=== PATIENT | male | born 1955 | race Caucasian/White ===

== ENCOUNTER 2018-12-21 17:25 | Inpatient (IN) | payer BC, SELFPAY ==
[2018-12-21] VITALS (7 sets, daily range): BP systolic 128–136; BP diastolic 75–95; PULSE 102–118; RESP 16–18; TEMP 36.7–37.2; O2SAT 94–96; BMI 23.3; BMI 23.2
--- NOTE | 2018-12-21 17:46 | CT_ITS ---
STUDY: CTA CHEST REASON FOR EXAM: Male, 63 years old. Left lower extremity DVT RADIATION DOSAGE (If Supplied By Facility): CTDIvol = ( 11.12 ) mGy, DLP = ( 470.24 ) mGycm TECHNIQUE: The examination was performed with the intravenous administration of Isovue 370 100ML IV. Post-processing of the angiographic images was performed, with multiplanar reformation and 3D reconstruction. Individualized dose optimization techniques were used for this CT. COMPARISON: None. FINDINGS: Pulmonary emboli noted bilaterally within the second and third order branch vessels. On the right, within the right upper lobe, right middle lobe and right lower lobe and on the left, within the left lower lobe. No evidence of saddle component Normal thoracic aorta and visualized great vessels. There is no demonstrated aortic dissection. No evidence of right heart strain. Mild cardiomegaly. Normal mediastinum. Normal hilar regions. Normal visualized trachea and bronchi. The lungs are well expanded. Normal pulmonary parenchyma. Normal pleura. Normal chest wall structures. Normal osseous structures. Normal visualized upper abdomen. CT/CTA Chest W/WO Contrast IMPRESSION: Bilateral pulmonary emboli as detailed above. No evidence of right heart strain. No saddle component. Lungs are clear. N.B. : The above information has been verbally conveyed by Maxim Waggoner DO to Dr. Devin Rowland MD, on 12/21/2018 19:53:59 (ET). Electronically Signed: Maxim Waggoner DO at 19:55 EDT Tel , Service support ,
--- NOTE | 2018-12-21 17:49 | ED.DCSUM_ITS ---
- ER Visit Summary Date of Service: 12/21/18 Chief Complaint: Lower extremity edema History of Present Illness: The patient is a 63 M with left lower extremity edema that started earlier today. He had a venous ultrasound which showed a DVT. He denies any chest pain shortness of breath. He did does not feel lightheaded when he stands up. He has no recent fever or chills. 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 Physical Examination: Patient appears comfortable, he is speaking in full sentences with no obvious distress Slightly dry mucous membranes, no obvious facial deformity No C-spine tenderness supple neck. Regular rhythm, tachycardic, without any obvious murmurs Clear lungs bilaterally speaking in full sentences without any obvious respiratory distress Abdomen soft and nontender no guarding or rebound Moves all extremities without any difficulty or pain. There is left lower extremity edema in the ankle up to the knee. Skin does not show any obvious rashes or lesions, no trauma. Alert oriented ?3 with no gross focal deficit Emergency Department Course and Treatment: Patient continued to be tachycardic in the ED because of this a CT angiogram was done. This showed multiple PEs. Because he is not hemodynamically stable due to his tachycardia he will need admission. He will receive anticoagulation in the ED. I discussed the patient with his physician at [facility], Dr. Irene. Disposition: Admit in guarded condition Impression: Pulmonary embolism DVT This note was generated with [employer] dictation software. It may contain incorrect words, spelling, and punctuation that were not noted in review of the chart prior to signing ED Disposition - Plan for ED Patient: Referrals: Abdirizak Rubio DO [Primary Care Provider] -
[2018-12-21 18:16] LABS: Absolute Lymphocyte Count 0.35 X10^3/ul (0.83-4.51); Absolute Neutrophil Count 8.6 X10^3/uL (2.0-7.7); Basophil# 0.01 X10^3/uL; Basophil% 0.1 % (0-1); Eosinophil# 0.03 X10^3/uL; Eosinophils% 0.3 % (0-5); Hematocrit 35.7 % (40-54); Hemoglobin 11.6 g/dl (13.0-16.5); Lymphocyte # 0.35 X10^3/ul (4.0); Lymphocyte % 3.8 % (19-41); Mean Corp Hgb Conc 32.5 g/gl (32-36); Mean Corpuscular Hgb 30.2 pg (27.0-32.0); Monocyte# 0.27 X10^3/uL; Monocyte% 2.9 % (0-10); Neutrophil # 8.55 X10^3/uL (2.7-7.7); Neutrophil % 92.1 % (47-70); POSITIVE COUNT NO; POSITIVE DIFFERENTIAL YES; POSITIVE MORPHOLOGY NO; Platelet Count 170 K/mm3 (150-450); RBC Distribution Width CV 16.3 % (11.6-14.6); RBC Distribution Width SD 53.9 fl (35.1-43.9); Red Blood Count 3.84 M/mm3 (4.6-6.2); White Blood Count 9.3 K/mm3 (4.4-11.0)
[2018-12-21 18:17] LABS: Differential Indicated SCAN CRITERIA MET
[2018-12-21 18:27] LABS: AST(SGOT) 13 U/L (15-37); Alanine Aminotransfer ALT/SGPT 20 U/L (16-61); Albumin, Serum 3.2 g/dL (3.2-5.0); Alkaline Phosphatase 121 U/L (45-117); Anion Gap 6 (5-15); BUN 13 mg/dL (7-18); BUN/Creat Ratio 16.8 RATIO (10-20); Chloride 107 mmol/L (98-107); Creatinine, Serum 0.77 mg/dL (0.70-1.30); EST Glomerular Filtration Rate 108 mL/min (>60); Est Glom Filt Rate - Afr Amer 130 mL/min (>60); Estimated Creatinine Clearance 130.14 ml/min; Globulin 3.3 g/dL (2.2-4.2); Glucose 95 mg/dL (74-106); Protein, Total 6.5 g/dL (6.4-8.2); Sodium Level 138 mmol/L (136-145)
[2018-12-21 18:41] LABS: Differential Comment SCANNED
--- NOTE | 2018-12-21 19:08 | EKG12_ITS ---
Test Reason : EDEMA Blood Pressure : / mmHG Vent. Rate : 103 BPM Atrial Rate : 103 BPM P-R Int : 128 ms QRS Dur : 100 ms QT Int : 352 ms P-R-T Axes : 059 019 036 degrees QTc Int : 461 ms Sinus tachycardia Otherwise normal ECG Confirmed by MANE PARISI ([id number]), mapping editor ZAC WILCOX ([id number]) on 12/25/2018 4:49:24 PM Referred By: CHERI Confirmed By:MANE PARISI
[2018-12-21] MEDS: Enoxaparin 100 MG/ML Syringe 90 MG SC (19:19)
[2018-12-21] MEDS: 0.9% Normal Saline 1,000 ML 1000 ML IV (19:19)
--- NOTE | 2018-12-21 19:58 | HP.PCM_ITS ---
Problem List (1) DVT, lower extremity Status: Acute Qualifiers: Affected thrombotic vein of extremity: unspecified vein of extremity Chronicity: acute Laterality: left Qualified Code(s): I82.402 - Acute embolism and thrombosis of unspecified deep veins of left lower extremity (2) Pulmonary emboli Status: Acute Qualifiers: Pulmonary embolism type: other Chronicity: acute Acute cor pulmonale presence: without acute cor pulmonale Qualified Code(s): I26.99 - Other p ulmonary embolism without acute cor pulmonale (3) Plasmacytic leukemia Status: Chronic Qualifiers: Leukemia Active/Remission status: without remission Qualified Code(s): C90.10 - Plasma cell leukemia not having achieved remission (4) Meniere's disease Status: Chronic Qualifiers: Laterality: right Qualified Code(s): H81.01 - Meniere's disease, right ear History of Present Illness Date of Admission: 12/21/18 Chief Complaint: Recent LLE DVT, referred to ED The patient is a 63 y/o M w/ PMHx: Leukemia (Plasmacytoma) currently undergoing chemotherapy following Dr. Irene [facility] w/ chemotherapy today with onset LLE edema, mild discomfort primarily in the L knee region acute on chronic starting on day of ED presentation w/ UC evaluation for DVT, + extensive DVT from calf to femoral with referral to the ED secondary to the extensive nature of the clot. He denies any recent chest discomfort, dyspnea. Work-up in the ED included T 98.1, heart rate 118, BP 120/75, respiratory rate 18, 96% on room air, CBC with WBC 9.3, hemoglobin 11.6, platelet 170 with left shift, CMP not market appearing aside alk phos 121, troponin less than 0.015, EKG w/ sinus tachycardia, CTPA w/ BL diffuse pulmonary emboli. In the ED patient administered NS, therapeutic lovenox. Past Medical History Past Medical History (Chronic Problems): Chronic Problems Plasmacytic leukemia (Chronic) Meniere's disease (Chronic) Allergies No Known Allergies Allergy (Verified 12/21/18 17:26) Home Medications: Ambulatory Orders Medication Instructions Recorded Acyclovir 400 mg PO BID 12/21/18 Surgical History: - - Tonsillectomy, bilateral inguinal hernia repair, left leg prophylactic hardware placement, right ear decompression, appendectomy. Psychiatric History: No pertinent psych hx Lives: Spouse/ Significant Other Smoking Status: Never smoker Tobacco Use: Non-smoker Alcohol: None Drugs: None - *Family History Maternal History Items: Cancer - Breast CA. Paternal History Items: Cancer - Colon CA. Review of Systems Constitutional: Reports: Malaise, Weakness, Fatigue. Denies: Chills, Fever, Weight Change HEENT: Denies: Head Aches, Sinus Congestion, Sinus Drainage Cardiovascular: Reports: Edema. Denies: Chest Pain, Palpitations Respiratory: Denies: Cough, Shortness of breath at rest, Sputum production Gastrointestinal: Denies: Abdominal Pain, Nausea, Vomiting Genitourinary: Denies: Dysuria Musculoskeletal: Reports: Joint Pain, Leg Pain. Denies: Joint Tenderness Skin: Denies: Rash, Wounds Neurological: Denies: Numbness, Tingling, Focal weakness Psychiatric: Denies: Anxiety, Depression, Homicidal Ideations, Suicidal Ideations Hematologic/ Lymphatic: Reports: Easy Bruising, Easy Bleeding VTE Information - Inpt Only VTE Present on Admission: No VTE Mechan Device Prophylaxis: None VTE Pharm Prophylaxis ordered?: Yes Patient Problems: Active and Suspected Problems DVT, lower extremity (Acute) Pulmonary emboli (Acute) Subjective: Seated upright in the ED bed, fatigued appearance, NAD. Objective: Physical Examination: General: awake, alert, oriented x 3 and cooperative, seated upright in the ED b ed, fatigued appearance, no acute distress. Skin: normal color, turgor, no icterus, cyanosis. HEENT: AT/NC, EOMI, PERRLA, mildly dry MM, no carotid bruits or JVD noted. Lungs: Diminished breath sounds bilateral bases, moderate effort, no rales, ronchi or wheezing. Heart: Tachycardic with regular rhythm; no gallop, rub audible. Abdomen: soft, NTTP, ND, normal BS, no HSM. Extremities: no cyanosis, clubbing, lower extremity pedal to upper thigh edema, not markedly tender to palpation, noted pain is primarily at the knee. Neurological: patient awake, alert, oriented x 3; cognitive function intact; pupils equally reactive to light and accomodation; cranial nerves II-XII grossly normal, moving all 4 extremities, no focal deficits, strength moderately globally decreased secondary to acute presentation. Psychiatric: affect appears mildly fatigued, no acute evidence of depressive or anxiety feelings. - Physical Exam Vital Signs Temp Pulse Resp BP Pulse Ox 98.1 F 102 H 16 136/95 H 96 12/21/18 17:26 12/21/18 19:23 12/21/18 19:23 12/21/18 19:23 12/21/18 19:23 Oxygen Delivery Method Room Air Weight: 207 lb Body Mass Index (BMI) 23.3 Laboratory Tests Past 24 Hrs 12/21/18 12/21/18 12/21/18 17:55 17:55 17:55 WBC 9.3 RBC 3.84 L Hgb 11.6 L Hct 35.7 L MCV 93.0 MCH 30.2 MCHC 32.5 RDW 16.3 H RDW Differential 53.9 H Plt Count 170 MPV 9.0 Immature Gran % (Auto) 0.800 Neut % (Auto) 92.1 H Lymph % (Auto) 3.8 L Mchenry % (Auto) 2.9 Eos % (Auto) 0.3 Baso % (Auto) 0.1 Absolute Neuts (auto) 8.6 H Absolute Lymphs (auto) 0.35 L Total Counted Not Reportable Differential Comment SCANNED Sodium 138 Potassium 4.0 Chloride 107 Carbon Dioxide 25.0 Anion Gap 6 BUN 13 Creatinine 0.77 Estim Creat Clear Calc 130.14 Est GFR (MDRD) Af Amer 130 Est GFR (MDRD) Non-Af 108 BUN/Creatinine Ratio 16.8 Glucose 95 Calcium 8.0 L Total Bilirubin 0.20 AST 13 L ALT 20 Alkaline Phosphatase 121 H Troponin I < 0.015 Pending Total Protein 6.5 Albumin 3.2 Globulin 3.3 Albumin/Globulin Ratio 1.0 Assessment/Plan All Active Problems DVT, lower extremity (Acute) Pulmonary emboli (Acute) The patient is a 63 y/o M w/ PMHx: Leukemia (Plasmacytoma) currently undergoing chemotherapy following Dr. Irene per [facility] w/ chemotherapy today with onset LLE edema, mild discomfort primarily in the L knee region acute on chronic starting on day of ED presentation w/ UC evaluation for DVT, + extensive DVT from calf to femoral. (1) Diffuse Extensive LLE DVT w/ Resulting Diffuse BL Pulmonary Emboli: Work-up in the ED included T 98.1, heart rate 118, BP 120/75, respiratory rate 18, 96% on room air, CBC with WBC 9.3, hemoglobin 11.6, platelet 170 with left shift, CMP not market appearing aside alk phos 121, troponin less than 0.015, EKG w/ sinus tachycardia, CTPA w/ BL diffuse pulmonary emboli. Will admit to PCU, maintain on cardiac telemetry, will obtain ECHO, BNP, trop normal x 1 as noted and no overt strain on imaging. Given acute LLE DVT and pulmonary emboli in the setting of known cancer, per recommendations based on CLOT trial and superiority of injectable anticoagulation compared to PO anticoagulation with patients with active malignancy and thrombosis will plan to assess for initiation and continuation of lovenox 1 mg/kg q12. If not an option (i.e cost), may consider usage per CLOT trial of new oral anticoagulants or coumadin regimen. (2) Plasmacytic Leukemia: Patient diagnosed 10/2017, currently undergoing chemotherapy, following Dr. Irene per [facility] w/ chemotherapy on day of ED presentation. Mag and phos pending. Continue home acyclovir prophylactic regimen. (3) DVT prophylaxis: As noted acute DVT, PE setting, maintain on therapeutic lovenox as per #1. Code Visit Inpatient E&M: 78331 Init Hosp L3
--- NOTE | 2018-12-21 21:15 | ECHOCS_ITS ---
Reason For Study: Emboli Procedure This was a 2D Doppler, Color Flow transthoracic echocardiogram. Unable to perform Strain analysis due to needed use of Definity for Apical images. Exam performed portable in patient room. Left Ventricle Normal size and thickness. The estimated ejection fraction is 65 %. Stage 1 diastolic dysfunction. No regional wall motion abnormalities noted. Right Ventricle Normal size and thickness. Normal systolic function. Atria The left atrium is mildly enlarged. Normal right atrium. Normal atrial septum. Mitral Valve The mitral valve is structurally normal. No prolapse or stenosis seen. Trivial mitral valve insufficiency. Tricuspid Valve Normal tricuspid valve. Trivial tricuspid valve insufficiency. Right ventricular systolic pressure estimated to be 28 mmHg. Aortic Valve Normal aortic valve. Trisinus/trileaflet aortic valve. Pulmonic Valve Normal pulmonic valve. Great Vessels Normal aortic root. Normal arch. Normal inferior vena cava. Inferior vena cava collapse with sniff. Pericardium/Pleural No pericardial effusion. MMode/2D Measurements & Calculations LVIDd: 5.1 cm IVSd: 1.4 cm Ao root diam: 3.9 cm LVIDs: 3.1 cm LVPWd: 1.4 cm LA dimension: 3.6 cm FS: 38.3 % LAV(MOD-sp4): 67.5 ml LA A4 area: 21.9 cm2 RA A4 area: 17.6 cm2 Time Measurements MV dec time: 0.22 sec Doppler Measurements & Calculations MV E max desmond: 60.4 cm/sec Lat Peak E' Desmond: 6.5 cm/sec Med Peak E' Desmond: 9.2 cm/sec MV A max desmond: 81.9 cm/sec E/E' lat: 9.3 E/E' med: 6.5 MV E/A: 0.74 MV V2 max: 89.3 cm/sec MV P1/2t max desmond: 65.4 cm/sec Ao V2 max: 122.0 cm/sec MV max P.2 mmHg MV P1/2t: 79.1 msec Ao max P.0 mmHg MV V2 mean: 49.4 cm/sec MV dec slope: 242.0 cm/sec2 Ao V2 mean: 84.2 cm/sec MV mean P.1 mmHg MVA(P1/2t): 2.8 cm2 Ao mean P.2 mmHg MV V2 VTI: 17.2 cm Ao V2 VTI: 24.9 cm LV V1 max: 86.8 cm/sec PA V2 max: 84.7 cm/sec TR max desmond: 239.2 cm/sec LV V1 max P.0 mmHg TR max P.9 mmHg LV V1 mean P.4 mmHg LV V1 mean: 54.6 cm/sec LV V1 VTI: 18.6 cm Interpretation Summary The estimated ejection fraction is 65 %. Stage 1 diastolic dysfunction. The left atrium is mildly enlarged. Trivial mitral valve insufficiency. Trivial tricuspid valve insufficiency. Right ventricular systolic pressure estimated to be 28 mmHg. The study was technically difficult. Compared to prior study, changes are noted. Contrast injection was performed. Ordering Physician: Jahaira Jackson Referring Physician: Abdirizak Rubio M.D. Performed By: Carlos Cameron RCS
[2018-12-21] MEDS: 0.9% Normal Saline 1,000 ML 100 ML IV (21:30)
[2018-12-21] MEDS: Acyclovir 200 MG Capsule 400 MG PO (21:35)
[2018-12-21 21:43] LABS: Magnesium 2.2 mg/dL (1.6-2.6); Phosphorus 2.9 mg/dL (2.5-4.9)
[2018-12-21] MEDS: 0.9% NaCl Peripheral Flush Adult/Peds IV (22:05)
[2018-12-22] VITALS (8 sets, daily range): BP systolic 126–134; BP diastolic 76–87; PULSE 91–103; RESP 16; TEMP 36.4–37.2; O2SAT 93–95
[2018-12-22 07:36] LABS: Anion Gap 8 (5-15); BUN 13 mg/dL (7-18); BUN/Creat Ratio 16.9 RATIO (10-20); Calcium,Total 8.2 mg/dL (8.5-10.1); Chloride 107 mmol/L (98-107); Creatinine, Serum 0.77 mg/dL (0.70-1.30); EST Glomerular Filtration Rate 108 mL/min (>60); Est Glom Filt Rate - Afr Amer 131 mL/min (>60); Estimated Creatinine Clearance 130.14 ml/min; Glucose 137 mg/dL (74-106); Sodium Level 141 mmol/L (136-145)
[2018-12-22] MEDS: Acyclovir 200 MG Capsule 400 MG PO (09:29)
[2018-12-22] MEDS: Enoxaparin 100 MG/ML Syringe 90 MG SC ×2 (09:30→17:14)
--- NOTE | 2018-12-22 15:57 | CASEMGMT ---
RN NOLAN SILVICULTURIST CM to room to meet with patient for initial transition planning/care coordination assessment. JUAN FRANCISCO introduced self and role at [facility]. Pt voices understanding and consents to assessment at this time. Pt resting in bed in no distress at this time. Pt is A/O at this time and answers all questions appropriately. Care providers, pharmacy, and demographics verified/updated at this time. PCP: Joanne Specialists: Dr Irene-oncologist @ [facility] Preferred [facility]acy: [facility] Insurance: [employer] Prescription Benefit: Yes/[employer] Living Will/HPOA: Has both LW and HCPOA who is his . Living Arrangements: Lives @ home in a ranch home with his . 4 steps to enter. is independent with ADL's. Transportation: . DME: Uses a cane. Pt states no need for further DME at this time. HHC/SNF: Has never been to a SNF. Did have HHC after after surgery but does not remember the name of the agency. No needs for HHC identified at this time. Pt wishes to return home and has no concerns with going home at time of discharge. [facility] is currently receiving Out-pt PT @ [facility] in [place] and plans to continue doing therapy with them. CM to follow for any discharge planning/needs. Pt voices no further concerns/needs at this time. Advised pt to ask for CM if any further questions/concerns/needs arise. Voices understanding. PLAN: Home with continued Out-pt PT, spousal support, and discharge plans in place. Donna MOLINA RN, CM
--- NOTE | 2018-12-22 17:55 | DCINST_ITS ---
- Discharge Diagnoses Current Active Problems: Current Active and Chronic Problems Multiple myeloma (Chronic) DVT, lower extremity (Acute) Pulmonary emboli (Acute) Meniere's disease (Chronic) You will use the following diet at home:: No restrictions Your food should be the consistency of: Regular Your liquids should be the consistency of: Regular/Thin Discharge Activity: Return to Normal Activity Weight Bearing Status: Full weight bearing Allergies/Adverse Reactions: Allergies No Known Allergies Allergy (Verified 12/21/18 17:26) Medications to take at Discharge Acyclovir 400 mg PO BID 12/21/18 Acetaminophen [Tylenol Tablet] 650 mg PO Q6H PRN PRN tablet 12/22/18 Enoxaparin Sodium [Lovenox] 140 mg SQ DAILY #30 ml 12/22/18 The following prescriptions were given: Enoxaparin Sodium [Lovenox] 140 mg SQ DAILY #30 ml Primary Care Physician: Abdirizak Rubio DO [Primary Care Provider] - Test Results: Test results from this visit will be discussed in further detail at your follow- up appointment, if applicable. Please Follow Up With: your oncologist as directed
--- NOTE | 2018-12-24 16:46 | PCM.DC.SUM ---
Discharge Date and Diagnosis Date of Admission: 12/21/18 Date of Discharge: 12/22/18 - Primary Discharge Diagnosis #1 bilateral pulmonary emboli #2 multiple myeloma #3 VTE lower extremity - Secondary Discharge Diagnosis Chronic Problems Multiple myeloma (Chronic) Meniere's disease (Chronic) Hospital Course and Treatment Operations: None Procedures: 2-D Echocardiogram Summary of Care Provided: The patient is a 63 year old M who was seen in the emergency room at [facility] with chief complaint of lower extremity edema. Patient had an outpatient venous ultrasound which showed a DVT, patient had no complaints of any chest pain or shortness of breath. CTA of the chest was performed in the emergency room, the CTA showed multiple PEs, he was felt to need admission due to his tachycardia. Patient was admitted to PCU, placed on Lovenox, patient had an echocardiogram performed which was unremarkable. Patient was felt to be stable for discharge home, he required no oxygen and his vital signs were stable. It was felt that the best medication for the patient to take as an outpatient for his problem was Lovenox due to the fact that he was getting chemotherapy for multiple myeloma and this would cause thrombocytopenia and it was felt that it was easier to stop Lovenox if this occurred rather than stop Eliquis or Xarelto. On 12/22/18, patient was seen and examined: On examination he appeared in good health and spirits. Vital signs as documented. Skin warm and dry and without overt rashes. Neck without JVD. Lungs clear. Heart exam notable for regular rhythm, normal sounds and absence of murmurs, rubs or gallops. Abdomen unremarkable and without evidence of organomegaly, masses, or abdominal aortic enlargement. Extremities nonedematous. Neuro: Cranial nerves II through XII are grossly intact, no focal motor deficits were noted, sensation to light touch and pinprick intact. Psych: Patient is alert and oriented x3, he does not appear anxious or depressed On 12/22/18, patient was seen and examined and discharged home in stable condition - Physical Exam Vital Signs Temp Pulse Resp BP Pulse Ox 98.9 F 97 16 134/79 H 94 12/22/18 14:26 12/22/18 15:00 12/22/18 14:26 12/22/18 14:26 12/22/18 14:26 Oxygen Delivery Method Room Air Weight: 93.7 kg Body Mass Index (BMI) 23.2 Intake and Output for Last 24 Hours 12/22/18 12/23/18 12/24/18 23:59 23:59 23:59 Intake Total 833 / 833 Balance 833 / 833 Discharge Activity: Return to Normal Activity Weight Bearing Status: Full weight bearing Home Medications: Medications to take at Discharge Acyclovir 400 mg PO BID 12/21/18 Acetaminophen [Tylenol Tablet] 650 mg PO Q6H PRN PRN tablet 12/22/18 Enoxaparin Sodium [Lovenox] 140 mg SQ DAILY #30 ml 12/22/18 Following Prescrptions Were Given to Patient: Enoxaparin Sodium [Lovenox] 140 mg SQ DAILY #30 ml Primary Care Physician: Abdirizak Rubio DO [Primary Care Provider] - Please Follow Up With: your oncologist as directed Disposition: Home Minutes spent on discharge:: 32 Patient Condition:: Stable Medical Necessity - Tobacco Use Smoking Status: Never smoker Tobacco Use: Non-smoker Meaningful Use Info Meaningful Use Diagnoses (Choose all that apply): VTE - VTE Anticoag overlap given w/in hospital stay or rx'd at [place]?: No Pt receive overlap for 5 days?: No Reason overlap not ordered, prescribed, or given for 5 days: Medical Contraindication, Treatment Not Indicated Code Visit Inpatient E&M: 13803 Disch Hosp
--- NOTE | 2018-12-24 16:50 | DS.PCM_ITS ---
Discharge Date and Diagnosis Date of Admission: 12/21/18 Date of Discharge: 12/22/18 - Primary Discharge Diagnosis #1 bilateral pulmonary emboli #2 multiple myeloma #3 VTE lower extremity - Secondary Discharge Diagnosis Chronic Problems Multiple myeloma (Chronic) Meniere's disease (Chronic) Hospital Course and Treatment Operations: None Procedures: 2-D Echocardiogram Summary of Care Provided: The patient is a 63 year old M who was seen in the emergency room at [facility] with chief complaint of lower extremity edema. Patient had an outpatient venous ultrasound which showed a DVT, patient had no complaints of any chest pain or shortness of breath. CTA of the chest was performed in the emergency room, the CTA showed multiple PEs, he was felt to need admission due to his tachycardia. Patient was admitted to PCU, placed on Lovenox, patient had an echocardiogram performed which was unremarkable. Patient was felt to be sta ble for discharge home, he required no oxygen and his vital signs were stable. It was felt that the best medication for the patient to take as an outpatient for his problem was Lovenox due to the fact that he was getting chemotherapy for multiple myeloma and this would cause thrombocytopenia and it was felt that it was easier to stop Lovenox if this occurred rather than stop Eliquis or Xarelto. On 12/22/18, patient was seen and examined: On examination he appeared in good health and spirits. Vital signs as documented. Skin warm and dry and without overt rashes. Neck without JVD. Lungs clear. Heart exam notable for regular rhythm, normal sounds and absence of murmurs, rubs or gallops. Abdomen unremarkable and without evidence of organomegaly, masses, or abdominal aortic enlargement. Extremities nonedematous. Neuro: Cranial nerves II through XII are grossly intact, no focal motor deficits were noted, sensation to light touch and pinprick intact. Psych: Patient is alert and oriented x3, he does not appear anxious or depressed On 12/22/18, patient was seen and examined and discharged home in stable condition - Physical Exam Vital Signs Temp Pulse Resp BP Pulse Ox 98.9 F 97 16 134/79 H 94 12/22/18 14:26 12/22/18 15:00 12/22/18 14:26 12/22/18 14:26 12/22/18 14:26 Oxygen Delivery Method Room Air Weight: 93.7 kg Body Mass Index (BMI) 23.2 Intake and Output for Last 24 Hours 12/22/18 12/23/18 12/24/18 23:59 23:59 23:59 Intake Total 833 / 833 Balance 833 / 833 Discharge Activity: Return to Normal Activity Weight Bearing Status: Full weight bearing Home Medications: Medications to take at Discharge Acyclovir 400 mg PO BID 12/21/18 Acetaminophen [Tylenol Tablet] 650 mg PO Q6H PRN PRN tablet 12/22/18 Enoxaparin Sodium [Lovenox] 140 mg SQ DAILY #30 ml 12/22/18 Following Prescrptions Were Given to Patient: Enoxaparin Sodium [Lovenox] 140 mg SQ DAILY #30 ml Primary Care Physician: Abdirizak Rubio DO [Primary Care Provider] - Please Follow Up With: your oncologist as directed Disposition: Home Minutes spent on discharge:: 32 Patient Condition:: Stable Medical Necessity - Tobacco Use Smoking Status: Never smoker Tobacco Use: Non-smoker Meaningful Use Info Meaningful Use Diagnoses (Choose all that apply): VTE - VTE Anticoag overlap given w/in hospital stay or rx'd at [place]?: No Pt receive overlap for 5 days?: No Reason overlap not ordered, prescribed, or given for 5 days: Medical Contraindication, Treatment Not Indicated Code Visit Inpatient E&M: 93209 Disch Hosp
== END 2018-12-22 18:30 | disposition home or self-care (01) | DRG 299 ==
LOC: ED 18:39 → PCU 20:26
PROVIDERS: Admitting Provider Family Medicine; Emergency Provider Emergency Medicine; Family Provider Family Medicine; PCP Family Medicine; Visit Provider Internal Medicine
DX: I82.402 Acute embolism and thrombosis of unspecified deep veins of left lower extremity (principal); I26.99 Other pulmonary embolism without acute cor pulmonale; C90.00 Multiple myeloma not having achieved remission; C90.10 Plasma cell leukemia not having achieved remission; Z79.899 Other long term (current) drug therapy; H81.09 Meniere's disease, unspecified ear
CPT/HCPCS: 36415; 71275; 80048; 80053; 83735; 84100; 84484; 85025; 93005; 93306; 97802; 99282; J7030; Q9957; Q9967; A4216; C8929

== ENCOUNTER 2019-08-31 10:41 | Emergency (ER) | payer BC, SELFPAY ==
[2018-12-21 21:18] VITALS: BMI 23.2
[2019-08-31 10:43] VITALS: BP 110/76; PULSE 97; RESP 13; TEMP 36.8; O2SAT 98; BMI 19.6
[2019-08-31 11:46] LABS: Absolute Lymphocyte Count 0.42 X10^3/uL (0.83-4.51); Absolute Neutrophil Count 3.4 X10^3/uL (2.0-7.7); Basophil# 0.01 X10^3/uL; Basophil% 0.2 % (0-1); Differential Indicated SCAN CRITERIA MET; Eosinophil# 0.03 X10^3/uL; Eosinophils% 0.6 % (0-5); Hematocrit 33.2 % (40-54); Hemoglobin 10.7 g/dL (13.0-16.5); Lymphocyte # 0.42 X10^3/ul (4.0); Lymphocyte % 8.9 % (19-41); Mean Corp Hgb Conc 32.2 g/dL (32-36); Mean Corpuscular Hgb 31.5 pg (27.0-32.0); Mean Corpuscular Volume 97.6 fL (80-94); Monocyte# 0.84 X10^3/uL; Monocyte% 17.8 % (0-10); NRBC Flagged by Analyzer 0 % (0-5); Neutrophil # 3.42 X10^3/uL (2.7-7.7); Neutrophil % 72.3 % (47-70); POSITIVE DIFFERENTIAL YES; Platelet Count 160 K/mm3 (150-450); RBC Distribution Width SD 53.3 fl (35.1-43.9); White Blood Count 4.7 K/mm3 (4.4-11.0)
[2019-08-31] MEDS: proMETHazine 25 MG/ML Syringe 6.25 MG IV (11:50)
[2019-08-31] MEDS: Dicyclomine 10 MG Capsule 20 MG PO (11:50)
[2019-08-31] MEDS: 0.9% Normal Saline 1,000 ML 1000 ML IV (11:50)
[2019-08-31 12:05] LABS: ALB/GLOB Ratio 0.7 RATIO (0.9-2.4); AST(SGOT) 32 U/L (15-37); Alanine Aminotransfer ALT/SGPT 28 U/L (16-61); Albumin, Serum 2.7 g/dL (3.2-5.0); Alkaline Phosphatase 201 U/L (45-117); Anion Gap 5 (5-15); BUN 16 mg/dL (7-18); BUN/Creat Ratio 18.1 RATIO (10-20); Calcium,Total 8.2 mg/dL (8.5-10.1); Chloride 107 mmol/L (98-107); Creatinine, Serum 0.89 mg/dL (0.70-1.30); EST Glomerular Filtration Rate 92 mL/min (>60); Est Glom Filt Rate - Afr Amer 111 mL/min (>60); Estimated Creatinine Clearance 93.93 ml/min; Globulin 3.8 g/dL (2.2-4.2); Glucose 95 mg/dL (74-106); Lipase 333 U/L (73-393); Potassium 3.8 mmol/L (3.5-5.1); Protein, Total 6.5 g/dL (6.4-8.2); Sodium Level 141 mmol/L (136-145)
--- NOTE | 2019-08-31 12:41 | ED.VIS.GEN ---
History of Present Illness Chief Complaint: Abd Pain Narrative: Patient presenting for evaluation secondary to abdominal pain, nausea and vomiting, diarrhea, and concerns for dehydration. Patient has an underlying history of multiple myeloma. He is getting treatments from oncology and [facility] for this. He basically has chronically been dealing with issues with nausea vomiting and diarrhea from his treatments. Patient reports that over the course of the last day or so he has had somewhat of an increase in his symptoms. Its been associated with epigastric abdominal pain. Patient states that he has had multitude of episodes of nonbloody nonbilious emesis, as well as multiple episodes of loose watery diarrhea. Patient does not have any recent hospital admissions, antibiotic use. He denies any travel. He denies any sick contacts. He reports that he called the ask a nurse line and they thought the potentially was dehydrated and that he would require evaluation in the emergency department. No exacerbating relieving factors to his symptoms. Review of systems otherwise negative. Past Medical History - Allergies and Home Meds Allergies/Adverse Reactions: Allergies No Known Allergies Allergy (Verified 12/21/18 17:26) Primary Care Physician: Care Physician,No Primary [Primary Care Provider] - Past Medical History: - - Multiple myeloma Surgical History: - - Tonsillectomy, bilateral inguinal hernia repair, left leg prophylactic hardware placement, right ear decompression, appendectomy. Smoking Status: Never smoker - Family History Maternal Family History: Reports: Cancer - Breast CA. Paternal Family History: Reports: Cancer - Colon CA. Review of Systems General: Reports: Malaise. Denies: Fever Eyes: Denies: Visual changes - bilaterally, Diplopia ENT: Denies: Rhinorrhea, Sore throat Cardiovascular: Denies: Chest pain, Palpitations Respiratory: Denies: Dyspnea, Cough, Dyspnea on exertion Gastrointestinal: Reports: Abdominal pain, Nausea, Vomiting, Diarrhea Genitourinary: Denies: Dysuria, Hematuria, Frequency Musculoskeletal: Denies: Back pain, Extremity Pain Skin: Denies: Rash, Wounds Neurological: Denies: Headache, Weakness, Numbness Psych: Denies: Depression Endocrine: Denies: Polyuria Hematologic: Denies: Easy bruising Allergy: Denies: Uticaria Physical Exam Vital Signs/Narrative: Vital Signs Temp Pulse Resp BP Pulse Ox 08/31/19 10:43 98.3 F 97 13 110/76 98 Inital Vital Signs reviewed: Yes General: - - Thin male who appears older than stated age. No evidence of acute distress. Head: Normocephalic, Atraumatic Eyes: Perrl, EOMI ENT: Moist mucous membranes, No rhinorrhea Neck: Supple, Nontender Cardiovascular: Regular rate, Regular rhythm, - - 2+ radial pulses bilaterally symmetric Respiratory: No distress, CTA bilaterally, Chest nontender Abdomen: Tender - Epigastric with no guarding or rebound tenderness. Normal bowel sounds. No evidence of palpable masses. Back: Nontender, Normal Inspection Extremities: Nontender, No edema Skin: Normal color, No rash Neurological: Alert, Oriented x3, Cranial nerves II-XII grossly intact, Normal Strength, Normal Sensation Psychological: Normal affect, Normal Mood Diagnostic/Tx/Re-eval - Medical Decision Making Patient presented secondary to nausea vomiting and diarrhea. He had stable vital signs, but does have a history of multiple myeloma, IV was established laboratory studies were obtained. Patient was given Phenergan as well as Bentyl and normal saline. CBC shows mild anemia of 10, with no evidence of leukopenia. Patient's chemistry was grossly unremarkable except for mildly elevation of the patient's lipase at 300. No evidence of electrolyte derangement. Patient upon repeat evaluation showed significant some dramatic improvement. At this point I do not feel patient requires admission or further work-up. Patient will be sent home with a course of Phenergan as that seemed to work form. All questions were answered and the patient was discharged. ED Disposition - Plan for ED Patient: Disposition: Home or Assisted Living Diagnosis: Nausea vomiting and diarrhea, Multiple myeloma Instructions: VOMITING (6y-Adult) Prescriptions: proMETHazine tablet [Phenergan] 25 mg PO Q6H PRN PRN #10 tab PRN Reason: Nausea Prescription Printed Additional Instructions: Followup with your oncologist
[2019-08-31 12:51] VITALS: BP 112/71; PULSE 68; RESP 15; O2SAT 99
== END 2019-08-31 12:53 | disposition home or self-care (01) ==
PROVIDERS: Emergency Provider Emergency Medicine
DX: R11.2 Nausea with vomiting, unspecified (principal); R19.7 Diarrhea, unspecified; R10.13 Epigastric pain; C90.00 Multiple myeloma not having achieved remission
CPT/HCPCS: 80053; 83690; 85025; 96361; 96374; 99283; J7030; A4216

== ENCOUNTER 2019-11-02 10:45 | Emergency (ER) | payer OTHER, SELFPAY ==
[2019-11-02] VITALS (8 sets, daily range): BP systolic 89–102; BP diastolic 55–78; PULSE 120–147; RESP 16–26; TEMP 36.6; O2SAT 93–96; BMI 18.4
--- NOTE | 2019-11-02 11:15 | EKG12_ITS ---
Test Reason : ABDOMINAL PAIN Blood Pressure : / mmHG Vent. Rate : 136 BPM Atrial Rate : 136 BPM P-R Int : 130 ms QRS Dur : 090 ms QT Int : 322 ms P-R-T Axes : 080 047 055 degrees QTc Int : [address] & T wave abnormality, consider inferior ischemia Abnormal ECG Confirmed by JES MAY, MARIA ESTHER ([id number]), graphics editor NIRMAL ALEXANDRA ([id number]) on 11/05/2019 12:12:45 PM Referred By: CARL Confirmed By:MARIA ESTHER ANDRE MD
--- NOTE | 2019-11-02 11:16 | ED.VIS.GEN ---
History of Present Illness Chief Complaint: Nausea/Vomiting/Diarrhea Informant: Patient, Family Onset: Days Narrative: Patient started a new chemotherapy 4 days ago for treatment of multiple myeloma and leukemia. The following day patient developed nausea, vomiting, and diarrhea. This has continued throughout the past 3 days. His primary oncologist is at [facility] [place]. He went to the local [facility] heme-onc office today and received 4 mg of Zofran and 1 L of IV fluids. Patient remained hypotensive and continued to have vomiting and was sent to the emergency room. Per family, the patient's main oncologist was contacted and wishes to have the patient transferred to their facility. - Past Medical History (1) DVT, lower extremity Status: Chronic (2) Pulmonary emboli Status: Chronic (3) Meniere's disease Status: Chronic (4) Multiple myeloma Status: Chronic (5) Plasmacytic leukemia Status: Ruled-out Past Medical History - Allergies and Home Meds Allergies/Adverse Reactions: Allergies No Known Allergies Allergy (Verified 11/02/19 10:46) Primary Care Physician: Toi Maldonado MD [Primary Care Provider] - Doctors: Dr. Samara Irene, heme-onc [facility] Prior records reviewed: Yes Surgical History: - - Tonsillectomy, bilateral inguinal hernia repair, left leg prophylactic hardware placement, right ear decompression, appendectomy. Lives: Spouse/ Significant Other Smoking Status: Never smoker - Family History Maternal Family History: Reports: Cancer - Breast CA. Paternal Family History: Reports: Cancer - Colon CA. Review of Systems General: Reports: Chills Eyes: Denies: Visual changes - bilaterally ENT: Denies: Bilateral ear pain Cardiovascular: Denies: Chest pain Respiratory: Denies: Dyspnea Gastrointestinal: Reports: Abdominal pain, Nausea, Vomiting, Diarrhea Musculoskeletal: Reports: Back pain Skin: Denies: Rash Neurological: Reports: Weakness Allergy: Denies: Uticaria Physical Exam Vital Signs/Narrative: Vital Signs Temp Pulse Resp BP Pulse Ox 11/02/19 10:47 97.9 F 139 H 26 H 99/69 95 Inital Vital Signs reviewed: Yes General: Cachectic ENT: Dry mucous membranes Neck: Supple Cardiovascular: Tachycardia Respiratory: No distress, CTA bilaterally Abdomen: Soft, Tender - Mild diffuse tenderness location. No guarding or rebound., Hypoactive bowel sounds Skin: Pallor Neurological: Alert Diagnostic/Tx/Re-eval 11/02/19 12:00 Stool Stool Lactoferrin - Final Laboratory Results 11/02/19 11/02/19 11/02/19 10:50 10:50 11:40 WBC 2.3 L RBC 3.23 L Hgb 10.3 L Hct 32.2 L MCV 99.7 H MCH 31.9 MCHC 32.0 RDW Std Deviation 61.8 H RDW Coeff of Byron 17.9 H Plt Count 84 L MPV 11.0 Immature Gran % (Auto) 3.000 H Neut % (Auto) 87.0 H Lymph % (Auto) 4.8 L Woodruff % (Auto) 4.3 Eos % (Auto) 0.0 Baso % (Auto) 0.9 Absolute Neuts (auto) 2.0 Absolute Lymphs (auto) 0.11 L Nucleated RBC % 0 Differential Comment Diff Path Review May foll Anisocytosis 2+ Sodium 139 Potassium 3.2 L Chloride 108 H Carbon Dioxide 20.0 L Anion Gap 11 BUN 19 H Creatinine 0.82 Estim Creat Clear Calc 95.77 Est GFR (MDRD) Af Amer 121 Est GFR (MDRD) Non-Af 100 BUN/Creatinine Ratio 23.1 H Glucose 102 Lactic Acid 3.7 H* Calcium 8.2 L Total Bilirubin 0.80 Direct Bilirubin 0.39 H AST 9 L ALT 42 Alkaline Phosphatase 431 H Total Protein 6.3 L Albumin 2.4 L Globulin 3.9 - Medical Decision Making Patient is receiving IV Phenergan to help control his nausea. He continues to have multiple episodes of diarrhea. He is receiving IV fluid boluses. Systolic blood pressure is now been between 100-110. Heart rate is still fluctuating between 120s and 140s. I spoke with transfer center at [facility]. Patient has been accepted by Dr. House. We are waiting a bed at this time. ED Disposition - Plan for ED Patient: Disposition: [facility] - Main Diagnosis: Vomiting, Diarrhea Referrals: Toi Maldonado MD [Primary Care Provider] -
[2019-11-02] MEDS: 0.9% Normal Saline 1,000 ML 1000 ML IV (11:24)
[2019-11-02] MEDS: proMETHazine 25 MG/ML Syringe 6.25 MG IV ×2 (11:25→12:16)
[2019-11-02 11:37] LABS: Absolute Lymphocyte Count 0.11 X10^3/uL (0.83-4.51); Basophil# 0.02 X10^3/uL; Basophil% 0.9 % (0-1); Hematocrit 32.2 % (40-54); Hemoglobin 10.3 g/dL (13.0-16.5); Lymphocyte # 0.11 X10^3/ul (4.0); Lymphocyte % 4.8 % (19-41); Mean Corpuscular Hgb 31.9 pg (27.0-32.0); Mean Corpuscular Volume 99.7 fL (80-94); Monocyte% 4.3 % (0-10); NRBC Flagged by Analyzer 0 % (0-5); Neutrophil # 2.01 X10^3/uL (2.7-7.7); POSITIVE COUNT YES; POSITIVE DIFFERENTIAL YES; POSITIVE MORPHOLOGY YES; Platelet Count 84 K/mm3 (150-450); RBC Distribution Width CV 17.9 % (11.6-14.6); RBC Distribution Width SD 61.8 fl (35.1-43.9); Red Blood Count 3.23 M/mm3 (4.6-6.2); White Blood Count 2.3 K/mm3 (4.4-11.0)
[2019-11-02 11:38] LABS: AST(SGOT) 9 U/L (15-37); Alanine Aminotransfer ALT/SGPT 42 U/L (16-61); Albumin, Serum 2.4 g/dL (3.2-5.0); Alkaline Phosphatase 431 U/L (45-117); Anion Gap 11 (5-15); BUN 19 mg/dL (7-18); BUN/Creat Ratio 23.1 RATIO (10-20); Bilirubin, Direct 0.39 mg/dL (0.00-0.30); Calcium,Total 8.2 mg/dL (8.5-10.1); Chloride 108 mmol/L (98-107); Creatinine, Serum 0.82 mg/dL (0.70-1.30); EST Glomerular Filtration Rate 100 mL/min (>60); Est Glom Filt Rate - Afr Amer 121 mL/min (>60); Estimated Creatinine Clearance 95.77 ml/min; Globulin 3.9 g/dL (2.2-4.2); Glucose 102 mg/dL (74-106); Potassium 3.2 mmol/L (3.5-5.1); Protein, Total 6.3 g/dL (6.4-8.2); Sodium Level 139 mmol/L (136-145)
[2019-11-02 11:40] LABS: Differential Indicated SCAN CRITERIA MET
[2019-11-02 11:57] LABS: Anisocytosis 2+
[2019-11-02 12:32] LABS: Lactic Acid 3.7 mmol/L (0.4-1.9)
--- NOTE | 2019-11-02 12:32 | ED.RN ---
lactic 3.[address] lab dr edward aware
--- NOTE | 2019-11-02 13:01 | NURSING ---
PT ACCEPTED AWAITING BED, HIGHEST PRIORITY
[2019-11-02] MEDS: 0.9% Normal Saline 1,000 ML 999 ML IV (13:11)
[2019-11-02] MEDS: 0.9% Normal Saline 1,000 ML 150 ML IV (14:07)
--- NOTE | 2019-11-02 14:30 | ED.RN ---
SPOKE WITH [facility] TRANSFER LINE, STILL WAITING FOR BED
--- NOTE | 2019-11-02 14:36 | ED.RN ---
BED READY MAIN [place] [address] G70 BED 26
--- NOTE | 2019-11-02 14:55 | ED.RN ---
CALLED . [facility]
--- NOTE | 2019-11-02 15:32 | ED.RN ---
VERBAL ORDER PER DR HENRY TO [facility] TO GIVE FLUID BOLUS IF MAP DROPS BELOW 65. [facility] AWARE
[2019-11-02 15:59] LABS: Reflex Lactate? Y
[2019-11-05 12:20] LABS: Pathologist Review Reviewed
== END 2019-11-02 15:34 | disposition short-term general hospital (02) ==
PROVIDERS: Emergency Provider Emergency Medicine; PCP Family Medicine
DX: R11.2 Nausea with vomiting, unspecified (principal); R19.7 Diarrhea, unspecified; C90.00 Multiple myeloma not having achieved remission; C95.90 Leukemia, unspecified not having achieved remission; H81.09 Meniere's disease, unspecified ear; Z86.711 Personal history of pulmonary embolism; Z86.718 Personal history of other venous thrombosis and embolism; Z79.899 Other long term (current) drug therapy
CPT/HCPCS: 80048; 80076; 83605; 83630; 85025; 87177; 87209; 87493; 87506; 93005; 96361; 96374; 96376; 99285; J7030; A4216